=== PATIENT | female | born 1935 | race Hispanic/Latino ===

== ENCOUNTER 2016-10-11 08:51 | Emergency (ER) | payer MEDICARE ==
[2016-10-11] MEDS ORDERED: Calcium Gluconate 4.65 mEq/10 ml Inj ONE (09:00)
[2016-10-11] MEDS ORDERED: Amiodarone 150mg/3 ml vial ONE (09:00)
[2016-10-11] MEDS ORDERED: Sodium Bicarbonate 7.5% (0.9 MEQ/ML) 50ML INJ IV ONE (09:00)
[2016-10-11] MEDS ORDERED: Propofol 10 mg/ml 1,000 MG/100 ML VIAL ONE (09:05)
[2016-10-11 09:20] VITALS: BMI 28.7
[2016-10-11] MEDS ORDERED: Propofol 10 mg/ml Inj (20 ML) IV ONE (09:24)
[2016-10-11] MEDS ORDERED: Sodium Chloride 0.9% 1,000 ML IV STA (09:24)
[2016-10-11] MEDS ORDERED: Propofol 10 mg/ml 1,000 MG/100 ML VIAL IV SCH (09:45)
[2016-10-11] MEDS ORDERED: Amiodarone 900 MG in Dextrose 5% In Water 500 ML IVPB SCH (09:46)
--- NOTE | 2016-10-11 10:12 | ED PDOC ---
HPI: Cardiac Arrest Time Seen by Provider: 10/11/16 09:00 Chief Complaint (Nursing): Respiratory Distress History Per: EMS Reason For Code Blue: Unresponsive Circumstances: Code Occurred While In The Hospital Arrest Witnessed By: By-stander CPR Initiated Prior To MD Arrival?: Yes Down-Time Before ACLS: Mins (1) Treatment Initiated Prior To MD Arrival: CPR, IV Access Additional Complaint(s): Pt BIBA for syncope [employer]. Pt went in to cardiac arrest upon arrival. Hx is taken from EMS. Pt was found unresponsive after collapse. Pt became alert awake upon EMS arrival and during transport. Pt was complaining of dyspnea in the field per EMS. No further history can be taken from the patient. - Initial Findings Mentation: Unresponsive Respirations: Agonal Pulse: None Rhythm: Tachycardia Past Medical History Reviewed: Historical Data, Nursing Documentation, Vital Signs Vital Signs: Last Vital Signs Temp Pulse 149 H 10/11/16 13:42 Resp 16 10/11/16 09:32 BP 109/68 10/11/16 09:39 Pulse Ox 90 L 10/11/16 09:11 - Medical History PMH: Arthritis, COPD, HTN, Hypercholesterolemia, Peripheral Edema, Pneumonia Denies: HIV, Chronic Kidney Disease - Surgical History Surgical History: Cholecystectomy, Tonsillectomy - Family History Family History: States: Unknown Family Hx - Home Medications Home Medications: Ambulatory Orders Medication Instructions Recorded Acetaminophen [Tylenol 325mg tab] 650 mg PO Q4 PRN #0 tab 08/17/14 Atorvastatin [Lipitor] 20 mg PO DAILY@2100 #0 tab 08/25/14 Lidocaine 5% [Lidoderm] 1 ea TD DAILY #0 patch 08/25/14 Valsartan [Diovan] 320 mg PO DAILY #0 tab 08/25/14 - Allergies Allergies/Adverse Reactions: Allergies Allergy/AdvReac Type Severity Reaction Status Date / Time iodine Allergy RASH Verified 10/11/16 09:13 flu vaccine Allergy SWELLING Uncoded 10/11/16 09:13 Review of Systems Review Of Systems: ROS cannot be obtained secondary to pt's inabilty to answer questions. Physical Exam - Reviewed Nursing Documentation Reviewed: Yes Vital Signs Reviewed: Yes - Physical Exam Appears: Negative for: In Acute Distress (comatose intubated in arrest) Head Exam: Positive for: ATRAUMATIC, NORMAL INSPECTION Skin: Positive for: Diaphoresis, Mottled, Cyanosis (cool). Negative for: Rash Eye Exam: Positive for: Normal appearance, PERRL ENT: Positive for: Pharynx Is (clear), Other (ETT in place) Neck: Positive for: Supple Cardiovascular/Chest: Positive for: Edema, Bradycardia. Negative for: Regular Rate, Rhythm (no heart sounds) Respiratory: Positive for: Rhonchi, Other (assisted breath sounds) Pulses-Carotid (L): 0 Pulses-Carotid (R): 0 Pulses-Femoral (L): 0 Pulses-Femoral (R): 0 Gastrointestinal/Abdominal: Positive for: Soft. Negative for: Distended Extremity: Negative for: Pedal Edema, Swelling Neurologic/Psych: Positive for: Other (comatose). Negative for: Alert, Oriented - ECG ECG: Positive for: Interpreted By Me, Viewed By Me ECG Rhythm: Positive for: Atrial Fibrillation, Right Bundle Branch Block, Nonspecific Changes Rate: 149 - Radiology X-Ray: Interpreted by Me, Viewed By Me X-Ray Interpretation: Infiltrates (RUL), Other (ETT in place) - Critical Care Total Time (In Min): 60 Documented Critical Care: Time excludes all time spent performint seperately billable procedures Medical Decision Making Medical Decision Making: Cardiac arrest Consider SD, PE, CVA ACLS care initiated per AHA guidelines Include: CPR chest comparessions Cardioversion no indications Hypotermia no ROSC not indicated Cath considered. Discussed with Dr Oliva 9.15 am: Reviewed the case and EKG findings with me on the phone: No criteria for Code Heart. Intubation and ventilation Central line Amiodaron bolus 150mg IV and drip 1mg.hr Patient went in to asystolic arrest 3 times while in ED. Unable to sustain ROSC. CPR terminated due to persistent asystole and unsustained ROSC. CXR reviewed: RUL opacity likely pulmonary infarct from PE. Procedures - Time-Out Type of Procedure: Intubation and central line placement Site of Procedure: Right femoral Correct Patient (with visual ID + MR# on ID Band): Yes Correct Procedure: Yes Correct Site Marked: Yes Physician Name: Lukasz - Central Line Central Line Lumen: triple Central Line Procedure: betadine prep Central Line Postion: femoral (R) Complications: none Central Line Post Position: good blood return Progress: emergency consent - Intubation Time of Intubation: 09:10 Intubation Method: nasotracheal Tube Size (cm): 7.5 Breath Sounds after Intubation: equal Intubation Complications: no complications Post Intubation Xray: Yes Progress/Xray Impression: ETT in place - Additional Procedures Additional Procedures: CPR Disposition - Clinical Impression Clinical Impression: Cardiac arrest - Patient ED Disposition Is Patient to be Admitted: No Discussed With DrChrist: Will Ann - Disposition Disposition Time: 10:05 Condition:
--- NOTE | 2016-10-11 10:48 | CARD ---
APPROVED REPORT EKG Measurement Heart [id number] <Conclusion> Atrial fibrillation with rapid ventricular response with premature ventricular or aberrantly conducted complexes Right bundle branch block Abnormal ECG
[2016-10-11 10:54] VITALS: PULSE 149
[2016-10-11 11:30] VITALS: O2SAT 90
[2016-10-11 11:31] VITALS: RESP 16
[2016-10-11 11:33] VITALS: BP 109/68
--- NOTE | 2016-10-11 14:56 | RAD ---
PROCEDURE: CHEST RADIOGRAPH, 1 VIEW HISTORY: intubation COMPARISON: None available. FINDINGS: LUNGS: In situ ETT, tip of which appears to be located approximately 4.1 cm above annie ; note however that the annie is not well delineated on this exam due to underpenetration There is dense opacity right upper lobe which could be artifactual however atelectasis and/or infiltrate not excluded. Central pulmonary vasculature appears congested as well. Suspect bibasilar atelectasis PLEURA: No pneumothorax or pleural fluid seen. CARDIOVASCULAR: Normal. OSSEOUS STRUCTURES: No significant abnormalities. VISUALIZED UPPER ABDOMEN: Normal. OTHER FINDINGS: Radiopaque wires and oral leads seen over the upper abdomen ; IMPRESSION: In situ ETT, tip of which appears to be located approximately 4.1 cm above annie ; note however that the annie is not well delineated on this exam due to underpenetration There is dense opacity right upper lobe which could be artifactual however atelectasis and/or infiltrate not excluded. Central pulmonary vasculature appears congested as well. Suspect bibasilar atelectasis
== END 2016-10-11 12:54 ==
LOC: H.ER 08:51
DX: I46.9 Cardiac arrest, cause unspecified (principal); I10 Essential (primary) hypertension; J44.9 Chronic obstructive pulmonary disease, unspecified
CPT/HCPCS: 31500; 71010; 92950; 93005; 96374; 99285; J0171; J0282; J0610; J2704; J7040